=== PATIENT | female | born 1970 | race Caucasian/White ===

== ENCOUNTER → 2016-04-07 | Outpatient (CLI) | payer BC ==
[~2016-04-07] MED LIST: ALBU8.5H2 IH; BCP; BECL25SP NS; DIPH25CA79 PO; EPIN0.3P3 IJ; EPIN0.3P3 IM; FEXO1TAB49 PO; KETO-22 PO; LEVO500T69 PO; LORA10CA PO; MELO-195 PO; NORG1TAB31 PO; OMEP-10 PO; PRD20T PO; RIVA15TA PO; [UNRECOGNIZED DRUG - CODE] PO
--- OUTSIDE RECORDS SUMMARY | 2016-04-07 15:39 | XMS REPORT | Continuity of Care Document ---
Author Author [facility] Organization [facility] Address Unknown Phone Unavailable Allergies Active Description Code Type Severity Reaction Onset Reported/Identified Relationship to Patient Clinical Status Yes NKANo Known Allergies NKA Miscellaneous Allergy Unknown N/ A 03/22/2006 Yes sulfamethoxazole [id number] Drug Allergy Severe HIVES 03/03/2015 Yes trimethoprim [id number] Drug Allergy Severe HIVES 03/03/2015 Medications Problems Date Dx Coded Attending Type Code Diagnosis Diagnosed By 07/19/2013 JOSHUA MORA MD Ot 708.9 03/04/2014 Ot 704.00 03/04/2014 Ot 780.79 03/04/2014 Ot 611.72 03/26/2014 NURIA NINA MD Ot V76.12 03/03/2015 Ot 611.72 03/03/2015 NURIA NINA MD Ot V76.12 03/04/2015 BRIANNE MERRILL DO Ot I26.99 OTHER PULMONARY EMBOLISM WITHOUT ACUTE C 03/04/2015 BRIANNE MERRILL DO Ot I82.4Z2 AC EMBLSM AND THOMBOS UNSP DEEP VEINS OF 03/04/2015 BRIANNE MERRILL DO Ot K21.9 GASTRO-ESOPHAGEAL REFLUX DISEASE WITHOUT 03/04/2015 BRIANNE MERRILL DO Ot N91.2 AMENORRHEA, UNSPECIFIED 03/04/2015 BRIANNE MERRILL DO Ot Z23 ENCOUNTER FOR IMMUNIZATION 03/09/2015 Ot 611.72 03/09/2015 MAICO CUNNINGHAM, NURIA Aparicio Ot V76.12 03/19/2015 YVETTE RIDER LINK TRAINER TEACHER Ot I82.4Y2 04/29/2015 MELINDA HORNER DC Ot M50.32 05/27/2015 TANGELA ROMAN APRN Ot I82.402 06/09/2015 TANGELA ROMAN APRN Ot I82.402 ACUTE EMBOLISM AND THOMBOS UNSP DEEP VEI 10/19/2015 YVETTE RIDER L[employer] TRAINER TEACHER Ot I82.4Y2 AC EMBLSM AND THOMBOS UNSP DEEP VEINS OF 10/19/2015 LONG MELINDA MINOR S Ot 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, MID-CE 10/19/2015 TANGELA ROMAN APRN Ot I82.402 ACUTE EMBOLISM AND THOMBOS UNSP DEEP VEI 10/20/2015 JULY PITTMAN DO Ot I82.409 ACUTE EMBOLISM AND THOMBOS UNSP DEEP VN 10/20/2015 JULY PITTMAN DO Ot J45.909 UNSPECIFIED ASTHMA, UNCOMPLICATED 11/17/2015 JULY PITTMAN DO Ot M79.662 PAIN IN LEFT LOWER LEG 11/17/2015 JULY PITTMAN DO Ot Z86.718 PERSONAL HISTORY OF OTHER VENOUS THROMBO 12/16/2015 YVETTE RIDER APRN Ot I82.4Y2 AC EMBLSM AND THOMBOS UNSP DEEP VEINS OF 12/16/2015 LONG MELINDA MINOR S Ot 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, MID-CE 12/16/2015 TANGELA ROMAN APRN Ot I82.402 ACUTE EMBOLISM AND THOMBOS UNSP DEEP VEI 12/16/2015 JULY PITTMAN DO Ot M79.662 PAIN IN LEFT LOWER LEG 12/16/2015 JULY PITTMAN DO Ot Z86.718 PERSONAL HISTORY OF OTHER VENOUS THROMBO 12/16/2015 TANGELA ROMAN LINK TRAINER TEACHER Ot I82.409 ACUTE EMBOLISM AND THOMBOS UNSP DEEP VN 12/16/2015 TANGELA ROMAN APRN Ot J45.909 UNSPECIFIED ASTHMA, UNCOMPLICATED 01/27/2016 TANGELA ROMAN APRN Ot I82.402 ACUTE EMBOLISM AND THOMBOS UNSP DEEP VEI 01/27/2016 TANGELA ROMAN LINK TRAINER TEACHER Ot J45.909 UNSPECIFIED ASTHMA, UNCOMPLICATED 02/10/2016 TANGELA ROMAN APRN Ot I82.402 ACUTE EMBOLISM AND THOMBOS UNSP DEEP VEI 02/24/2016 TANGELA ROMAN LINK TRAINER TEACHER Ot I82.402 ACUTE EMBOLISM AND THOMBOS UNSP DEEP VEI 03/15/2016 HETAL BEY DO Ot Z12.31 ENCNTR SCREEN MAMMOGRAM FOR MALIGNANT NE 03/15/2016 YVETTE RIDER LINK TRAINER TEACHER Ot I82.4Y2 AC EMBLSM AND THOMBOS UNSP DEEP VEINS OF 03/15/2016 MELINDA HORNER DC Ot 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, MID-CE 03/15/2016 TANGELA ROMAN APRN Ot I82.402 ACUTE EMBOLISM AND THOMBOS UNSP DEEP VEI 03/15/2016 JULY PITTMAN DO Ot M79.662 PAIN IN LEFT LOWER LEG 03/15/2016 JULY PITTMAN DO Ot Z86.718 PERSONAL HISTORY OF OTHER VENOUS THROMBO 03/15/2016 TANGELA ROMAN APRN Ot I82.402 ACUTE EMBOLISM AND THOMBOS UNSP DEEP VEI 03/15/2016 HETAL BEY DO Rick Ot Z12.31 ENCNTR SCREEN MAMMOGRAM FOR MALIGNANT NE Procedures Results Test Result Range Comprehensive metabolic panel - 12/14/15 10:52 Serum or plasma sodium measurement (moles/volume) 140 mmol/ L 135-145 Serum or plasma potassium measurement (moles/volume) 4.4 mmol/L 3.6-5.0 Serum or plasma chloride measurement (moles/volume) 107 mmol /L 98-107 Carbon dioxide 26 mmol/L 21-32 Serum or plasma anion gap determination (moles/volume) 7 mmol/L 5-14 Serum or plasma urea nitrogen measurement (mass/volume) 7 mg /dL 7-18 Serum or plasma creatinine measurement (mass/volume) 0.75 mg /dL 0.60-1.30 Serum or plasma urea nitrogen/creatinine mass ratio 9 NRG Serum or plasma creatinine measurement with calculation of estimated glomerular filtration rate > NRG Serum or plasma glucose measurement (mass/volume) 105 mg/dL 70-105 Serum or plasma calcium measurement (mass/volume) 9.0 mg/dL 8.5-10.1 Serum or plasma total bilirubin measurement (mass/volume) 0.8 mg/dL 0.1-1.0 Serum or plasma alkaline phosphatase measurement (enzymatic activity/volume) 66 U/L 40-136 Serum or plasma aspartate aminotransferase measurement (enzymatic activity/ volume) 16 U/L 5-34 Serum or plasma alanine aminotransferase measurement (enzymatic activity/volume ) 18 U/L 0-55 Serum or plasma protein measurement (mass/volume) 6.7 g/dL 6.4-8.2 Serum or plasma albumin measurement (mass/volume) 4.2 g/dL 3.2-4.5 Encounters ACCT No. Visit Date/Time Discharge Status Pt. Type Provider Facility Loc./Unit Complaint [id number] 03/03/2015 11:35:00 2015 11:33:00 DIS Inpatient BRIANNE MERRILL DO [facility] 4TH LEFT LOWER EXTREMITY DVT [id number] 03/09/2014 11:06:00 2014 23:59:59 CLS Outpatient MAICO CUNNINGHAM, NURIA Aparicio [facility] RAD [id number] 07/19/2013 02:04:00 2013 04:13:00 DIS Emergency JOSHUA MORA MD [facility] ER [id number] 01/03/2013 14:17:00 2012 23:59:59 CLS Outpatient [id number] 04/07/2016 15:30:00 PEN Preadmit HETAL BEY DO S [facility] RAD SCREENING [id number] 12/14/2015 10:34:00 ACT Outpatient TANGELA ROMAN [employer] TRAINER TEACHER [facility] LAB DVT,ASTHMA [id number] 10/19/2015 14:13:00 ACT Outpatient JULY PITTMAN DO [facility] RAD DVT, ASTHMA [id number] 05/27/2015 15:21:00 ACT Outpatient TANGELA ROMAN [employer] TRAINER TEACHER [facility] RAD DVT [id number] 04/18/2015 13:48:00 ACT Outpatient MELINDA HORNER DC [facility] RAD NECK PAIN [id number] 03/09/2015 14:06:00 ACT Outpatient HETAL BEY DO S [facility] RAD SCREENING [id number] 03/03/2015 10:02:00 ACT Outpatient YVETTE RIDER LINK TRAINER TEACHER [facility] RAD SWELLING OF LOWER LIMB [id number] 02/07/2010 14:03:00 Document Registration [id number] 10/07/2008 12:54:00 Document Registration
--- NOTE | 2016-04-10 20:33 | Diagnostic Imaging Report ---
INDICATION: Screening. The current study was also evaluated with a Computer Aided Detection (CAD) system. Comparison made with prior examination of 03/09/2015, 03/09/2014, and 01/03/2013. FINDINGS: There has been bilateral breast augmentation with implant. There is a moderate amount of residual fibroglandular tissue. There is no dominant mass, spiculated lesion, or suspicious calcification identified. Implants are intact. IMPRESSION: Benign. ACR BI-RADS Category 2: Benign findings. Result letter will be mailed to the patient. Note: At least 10% of breast cancer is not imaged by mammography. Dictated by: Dictated on workstation # [id number]
== END ==
LOC: RAD 15:35
PROVIDERS: ATTEND Obstetrics & Gynecology
DX: Z12.31 Encounter for screening mammogram for malignant neoplasm of breast (principal)
CPT/HCPCS: 77067

== ENCOUNTER → 2016-12-12 | Outpatient (CLI) | payer BC ==
[2016-12-12 10:57] LABS: ALANINE AMINOTRANSFERASE 15 U/L (0-55); ANION GAP 5 MMOL/L (5-14); ASPARTATE AMINO TRANSFERASE 14 U/L (5-34); BILIRUBIN,TOTAL 0.4 MG/DL (0.1-1.0); BLOOD UREA NITROGEN 11 MG/DL (7-18); BUN/CREATININE RATIO 14; CALCIUM 9.1 MG/DL (8.5-10.1); CARBON DIOXIDE 28 MMOL/L (21-32); CHLORIDE 105 MMOL/L (98-107); CREATININE SERUM 0.76 MG/DL (0.60-1.30); GFR ESTIMATED > 60; GLUCOSE 99 MG/DL (70-105); POTASSIUM 4.2 MMOL/L (3.6-5.0); SODIUM 138 MMOL/L (135-145); TOTAL PROTEIN 6.8 GM/DL (6.4-8.2)
== END ==
LOC: LAB 10:28
PROVIDERS: ATTEND Nurse Practitioner Family
DX: J45.909 Unspecified asthma, uncomplicated (principal); I82.409 Acute embolism and thrombosis of unspecified deep veins of unspecified lower extremity
CPT/HCPCS: 36415; 80053